=== PATIENT | male | born 1975 ===

== ENCOUNTER 2021-03-02 10:24 | Inpatient (IN) | payer MEDICAID ==
[2021-03-02 11:17] LABS: #Basophils 0.1 10x3/uL (0.0-0.2); #Monocytes 0.6 10x3/uL (0.0-1.1); #Neutrophils 2.1 10x3/uL (1.5-8.4); %Basophils 2.3 % (0.0-2.0); %Eosinophils 0.3 % (0.0-6.0); %Monocytes 14.4 % (0.0-10.0); %Neutrophils 52.5 % (40.0-75.0); Hemoglobin 15.8 g/dL (13.5-17.5); Mean Corpuscular HGB CONC 37.1 g/dL (32.0-36.0); Mean Corpuscular Hemoglobin 32.2 pg (27.0-33.0); Mean Corpuscular Volume 86.9 fl (81.2-95.1); Mean Platelet Volume 9.2 fl (7.4-10.4); RBC Distribution Width 11.8 % (11.5-14.5); White Blood Cell (WBC) Count 3.9 10x3/uL (3.5-10.5)
[2021-03-02 11:18] LABS: Platelet Count 103 10x3/uL (150-450)
[2021-03-02 11:19] LABS: INR-International Normal Ratio 1.2; PTT 26.8 sec (22.0-33.0); Prothrombin Time 12.7 sec (9.5-12.1)
[2021-03-02 11:24] LABS: ALT (SGPT) 111 U/L (8-55); AST (SGOT) 297 U/L (5-34); Albumin 3.7 g/dL (3.5-5.0); Alcohol 158 mg/dL (Less than 10); Alkaline Phosphatase 135 U/L (40-110); Anion Gap 21 mmol/L (10-20); BUN (Urea Nitrogen) 5 mg/dL (8.9-20.6); Bilirubin, Total 8.8 mg/dL (0.2-1.2); Calc. Creatinine Clearance 0 mL/min (70-130); Calcium 8.2 mg/dL (7.8-10.44); Carbon Dioxide 26 mmol/L (22-29); Chloride 93 mmol/L (98-107); Globulin 3.1 g/dL (2.4-3.5); Glucose 104 mg/dL (70-105); Protein, Total 6.8 g/dL (6.0-8.3); Sodium 137 mmol/L (136-145)
[2021-03-02 11:28] LABS: Potassium 2.6 mmol/L (3.5-5.1)
[2021-03-02] MEDS ORDERED: Multivitamins, Adult 10 ML, Thiamine HCl 100 MG, Folic Acid 1 MG in Dextrose 5 %-0.45 %... IV SCH (11:30)
[2021-03-02] MEDS ORDERED: Lorazepam 2 MG/ML VIAL ONE ×2 (11:43→13:40)
[2021-03-02] MEDS ORDERED: Potassium Chloride 20 MEQ TAB ONE (11:44)
[2021-03-02] MEDS ORDERED: Ondansetron PF 4 MG/2 ML Vial IVP PRN (12:27)
[2021-03-02] MEDS ORDERED: Lorazepam 2 MG/ML VIAL SLOW IVP PRN (12:31)
[2021-03-02] MEDS ORDERED: Ondansetron PF 4 MG/2 ML Vial ONE (13:48)
[2021-03-02] MEDS: Potassium Chloride 20 MEQ in Premix Bag 1 BAG IVPB SCH ×4 (15:12→23:31)
[2021-03-02] MEDS: chlordiazePOXIDE HCl 25 MG CAP PO SCH ×2 (15:34→23:19)
[2021-03-02] MEDS: Metoprolol Tartrate 5 MG/5 ML VIAL IVP SCH ×2 (15:37→23:13)
[2021-03-02] MEDS: Lactated Ringer's 1,000 ML IV SCH (15:37)
[2021-03-02 16:17] LABS: Hemoglobin 15.5 g/dL (13.5-17.5)
[2021-03-02] MEDS: traMADol HCl 50 MG TAB PO PRN ×2 (16:31→23:06)
[2021-03-02 17:33] LABS: HBCM Index 0.24 S/CO (0-0.79); HBSAg Index 0.21 S/CO (0-0.99); Hep A IgM AB Non-Reactive (NonReactive); Hep A IgM S/CO 0.19 S/CO (0-0.79); Hep B Surf Ag Non-Reactive S/CO (NonReactive); Hep C IgG Ab Non-Reactive (NonReactive); Hep C Index 0.07 S/CO (0-0.79); Hepatitis B Core IgM Abs Non-Reactive (NonReactive)
[2021-03-02 19:38] VITALS: BMI 39.6
[2021-03-02 19:53] LABS: Acetaminophen Less than 6.0 mcg/mL (10.0-30.0)
[2021-03-02 20:33] LABS: Amphetamine Not Detected (NotDetected); Barbiturates Screen Not Detected (NotDetected); Benzodiazepine Screen Detected (NotDetected); Cocaine Metabolite Screen Not Detected (NotDetected); Methadone Not Detected (NotDetected); Methamphetamine Not Detected (NotDetected); Opiate Screen Not Detected (NotDetected); Oxycodone Screen Not Detected (NotDetected); Phencyclidine (PCP) Not Detected (NotDetected); THC/Cannabinoid Screen Not Detected (NotDetected); Tricyclic Screen Not Detected (NotDetected)
[2021-03-02] MEDS ORDERED: Pantoprazole 40 MG VIAL ONE (22:47)
[2021-03-02] MEDS: Pantoprazole 40 MG VIAL IVP SCH (23:13)
[2021-03-03 00:31] LABS: Hemoglobin 14.8 g/dL (13.5-17.5)
[2021-03-03] MEDS: Potassium Chloride 20 MEQ in Premix Bag 1 BAG IVPB SCH ×3 (01:02→02:12)
[2021-03-03] MEDS ORDERED: oxyCODONE 5 MG TAB PO SCH (01:15)
[2021-03-03] MEDS: Metoprolol Tartrate 5 MG/5 ML VIAL IVP SCH ×4 (02:13→20:43)
[2021-03-03] MEDS: Lactated Ringer's 1,000 ML IV SCH (05:38)
[2021-03-03 06:30] LABS: ALT (SGPT) 94 U/L (8-55); AST (SGOT) 214 U/L (5-34); Albumin 3.5 g/dL (3.5-5.0); Alkaline Phosphatase 117 U/L (40-110); Anion Gap 17 mmol/L (10-20); BUN (Urea Nitrogen) 8 mg/dL (8.9-20.6); Bilirubin, Total 12.3 mg/dL (0.2-1.2); Calc. Creatinine Clearance 171 mL/min (70-130); Calcium 7.9 mg/dL (7.8-10.44); Carbon Dioxide 27 mmol/L (22-29); Chloride 96 mmol/L (98-107); Glucose 78 mg/dL (70-105); Potassium 3.4 mmol/L (3.5-5.1); Protein, Total 6.5 g/dL (6.0-8.3); Sodium 137 mmol/L (136-145)
[2021-03-03 06:38] LABS: #Basophils 0.1 10x3/uL (0.0-0.2); #Monocytes 0.5 10x3/uL (0.0-1.1); #Neutrophils 1.9 10x3/uL (1.5-8.4); %Basophils 1.8 % (0.0-2.0); %Eosinophils 1.2 % (0.0-6.0); %Lymphocytes 27.1 % (18.0-47.0); %Monocytes 13.2 % (0.0-10.0); %Neutrophils 56.4 % (40.0-75.0); Hemoglobin 14.6 g/dL (13.5-17.5); Mean Corpuscular HGB CONC 34.8 g/dL (32.0-36.0); Mean Corpuscular Hemoglobin 31.8 pg (27.0-33.0); Mean Corpuscular Volume 91.3 fl (81.2-95.1); Mean Platelet Volume 9.4 fl (7.4-10.4); Red Blood Cell (RBC) Count 4.59 10x6/uL (4.32-5.72); White Blood Cell (WBC) Count 3.4 10x3/uL (3.5-10.5)
[2021-03-03 06:39] LABS: Platelet Count 82 10x3/uL (150-450)
[2021-03-03 06:48] LABS: INR-International Normal Ratio 1.2
[2021-03-03] MEDS: traMADol HCl 50 MG TAB PO PRN ×2 (08:25→19:35)
[2021-03-03] MEDS: Pantoprazole 40 MG VIAL IVP SCH ×2 (08:25→20:43)
[2021-03-03] MEDS: chlordiazePOXIDE HCl 25 MG CAP PO SCH ×3 (08:25→20:43)
[2021-03-03 08:56] LABS: Hemoglobin 14.3 g/dL (13.5-17.5)
[2021-03-03] MEDS ORDERED: Magnesium 2 GM/50 ML 2 GM in Premix Bag 1 BAG IVPB SCH ×2 (12:00→14:00)
[2021-03-03] MEDS ORDERED: PROPOFOL 20 ML ONE ×2 (13:25→13:37)
[2021-03-03] MEDS ORDERED: Lidocaine 2% MPF 10 ML AMP (For Epidural Use) ONE (13:25)
[2021-03-03 13:43] LABS: SARS-CoV-2 NAA Rapid Test Not Detected (NotDetected)
[2021-03-03 16:13] LABS: Hemoglobin 15.6 g/dL (13.5-17.5)
[2021-03-03] MEDS: Multivitamins, Adult 10 ML, Folic Acid 1 MG, Thiamine HCl 100 MG in Dextrose 5 %-0.45 %... IV SCH (17:04)
[2021-03-03] MEDS: hydrALAZINE 20 MG/ML VIAL SLOW IVP PRN (21:49)
[2021-03-04] MEDS: Metoprolol Tartrate 5 MG/5 ML VIAL IVP SCH ×4 (02:54→20:16)
[2021-03-04] MEDS: traMADol HCl 50 MG TAB PO PRN ×2 (03:28→15:56)
[2021-03-04 05:26] LABS: #Basophils 0.1 10x3/uL (0.0-0.2); #Monocytes 0.5 10x3/uL (0.0-1.1); #Neutrophils 2.4 10x3/uL (1.5-8.4); %Basophils 1.5 % (0.0-2.0); %Eosinophils 0.8 % (0.0-6.0); %Lymphocytes 22.9 % (18.0-47.0); %Monocytes 13.4 % (0.0-10.0); %Neutrophils 61.1 % (40.0-75.0); Hemoglobin 15.3 g/dL (13.5-17.5); Mean Corpuscular HGB CONC 35.4 g/dL (32.0-36.0); Mean Corpuscular Hemoglobin 32.1 pg (27.0-33.0); Mean Corpuscular Volume 90.6 fl (81.2-95.1); Mean Platelet Volume 10.3 fl (7.4-10.4); RBC Distribution Width 11.9 % (11.5-14.5); Red Blood Cell (RBC) Count 4.77 10x6/uL (4.32-5.72); White Blood Cell (WBC) Count 3.9 10x3/uL (3.5-10.5)
[2021-03-04 05:27] LABS: Platelet Count 91 10x3/uL (150-450)
[2021-03-04 05:39] LABS: ALT (SGPT) 85 U/L (8-55); AST (SGOT) 190 U/L (5-34); Albumin 3.6 g/dL (3.5-5.0); Alkaline Phosphatase 122 U/L (40-110); Anion Gap 14 mmol/L (10-20); BUN (Urea Nitrogen) 11 mg/dL (8.9-20.6); Bilirubin, Total 12.5 mg/dL (0.2-1.2); Calc. Creatinine Clearance 155 mL/min (70-130); Calcium 8.2 mg/dL (7.8-10.44); Carbon Dioxide 28 mmol/L (22-29); Chloride 93 mmol/L (98-107); Globulin 3.1 g/dL (2.4-3.5); Glucose 91 mg/dL (70-105); Magnesium 1.9 mg/dL (1.6-2.6); Potassium 3.2 mmol/L (3.5-5.1); Protein, Total 6.7 g/dL (6.0-8.3); Sodium 132 mmol/L (136-145)
[2021-03-04] MEDS: Lactated Ringer's 1,000 ML IV SCH ×3 (09:00→23:16)
[2021-03-04] MEDS: chlordiazePOXIDE HCl 5 MG CAP PO SCH ×3 (09:06→20:16)
[2021-03-04] MEDS: Pantoprazole 40 MG VIAL IVP SCH ×2 (09:07→20:16)
[2021-03-04] MEDS: Multivitamins, Adult 10 ML, Folic Acid 1 MG, Thiamine HCl 100 MG in Dextrose 5 %-0.45 %... IV SCH (18:33)
[2021-03-05] MEDS: Metoprolol Tartrate 5 MG/5 ML VIAL IVP SCH ×2 (01:35→08:49)
[2021-03-05] MEDS: traMADol HCl 50 MG TAB PO PRN (01:35)
[2021-03-05] MEDS: hydrALAZINE 20 MG/ML VIAL SLOW IVP PRN (05:39)
[2021-03-05] MEDS ORDERED: Pantoprazole 40 MG VIAL ONE (08:39)
[2021-03-05] MEDS: Pantoprazole 40 MG VIAL IVP SCH (08:49)
[2021-03-05] MEDS: chlordiazePOXIDE HCl 5 MG CAP PO SCH (08:50)
[2021-03-05] MEDS: Lactated Ringer's 1,000 ML IV SCH (09:01)
[2021-03-05 11:59] VITALS: BP 148/114; TEMP 98.3
== END 2021-03-05 12:15 | disposition home or self-care (01) | DRG 432 ==
LOC: CSHERS 10:24 → CSHTELE 14:45
PROVIDERS: ADMIT Hospitalist; ATTEND Hospitalist
PROC: 0DB68ZX Excision of Stomach, Via Natural or Artificial Opening Endoscopic, Diagnostic (ICD-10-PCS; principal; 2021-03-03)
DX: K70.10 Alcoholic hepatitis without ascites (principal); K22.11 Ulcer of esophagus with bleeding; K29.01 Acute gastritis with bleeding; Z20.822 Contact with and (suspected) exposure to COVID-19; F10.20 Alcohol dependence, uncomplicated; Y90.6 Blood alcohol level of 120-199 mg/100 ml; E87.6 Hypokalemia; D69.6 Thrombocytopenia, unspecified; I10 Essential (primary) hypertension; Z86.73 Personal history of transient ischemic attack (TIA), and cerebral infarction without residual deficits; F32.9 Major depressive disorder, single episode, unspecified; E83.42 Hypomagnesemia
CPT/HCPCS: 36415; 76705; 80053; 80074; 80143; 80306; 80307; 83735; 85025; 85610; 85730; 88305; 88312; 94760; 96365; 96366; 96375; 96376; C9113; J0360; J2060; J2405; J2704; J3411; J3475; J3480; J7042; J7120; U0002; U0003; U0005